=== PATIENT | female | born 1990 | race Caucasian/White ===

== ENCOUNTER 2025-06-08 15:46 | Emergency (ER) | payer OTHER ==
[~2025-06-08] VITALS: Ht 152.4 cm; Wt 106.8 kg
[2025-06-08 15:48] VITALS: BP 146/82; PULSE 107; TEMP 98.2; O2SAT 96
--- NOTE | 2025-06-08 15:55 | ELECTROCARDIOGRAPH REPORT ---
[facility] Test Date: 2025-06-08 Test Time: 15:54:02 Pat Name: DONNY POWERS Department: EMERGENCY ROOM Room: Gender: F Relationship Management Lead: : 1990 Requested By: KEVIN LEYVA Order Number: [id number] Reading MD: Measurements Intervals [place] Rate: 105 P: 50 WA: 123 QRS: -12 QRSD: 76 T: 53 QT: 328 QTc: 434 Interpretive Statements Sinus tachycardia Please click the below link to view image of tracing.
--- NOTE | 2025-06-08 16:21 | RADIOLOGY REPORT ---
EXAM: DI CHEST,SINGLE VIEW HISTORY: CP TECHNIQUE: 1 view of the chest COMPARISON: None FINDINGS/IMPRESSION: LUNGS: No pleural effusion, consolidation, or pneumothorax MEDIASTINUM: Unremarkable BONES: No acute osseous abnormality OTHER: None
[2025-06-08 16:23] LABS: MEAN PLATELET VOLUME 9.3 FL (7.4-10.4); RED CELL DISTRIBUTION WIDTH 13.2 % (11.5-14.5)
[2025-06-08 16:38] LABS: CREATININE 0.86 MG/DL (0.40-0.90); PRO BRAIN NATRIURETIC PEPTIDE < 30 PG/ML (0-125); TOTAL CARBON DIOXIDE 28.4 MMOL/L (24-32); eCRCL 65 ML/MIN; eGFR 75 ML/MIN
[2025-06-08 16:41] VITALS: RESP 16
[2025-06-08] MEDS ORDERED: IBUP-1986 PO (17:18)
--- NOTE | 2025-06-08 17:22 | Physician Documentation ---
History of Present Illness General Chief Complaint: Shoulder pain Stated Complaint: FALL Time Seen by MD: 17:00 Primary Medical Doctor: NONE Mode of Arrival: POV, Ambulatory History of Present Illness Initial Comments The patient is a 35-year-old female who fell on her outstretched arms about four days ago and has ongoing left shoulder pain. Medication Reconciliation Allergies: Coded Allergies: No Known Allergies (Unverified , 06/08/25) Review of Systems ROS Review of systems is negative except as noted in the HPI. Physical Exam Physical Exam Vital Signs: Temperature: 98.2, Heart Rate: 107, Respiratory Rate: 16, BP: 146/82, Pulse Oximetry: 96, Weight: 106.820 Physical Exam Physical Exam Vitals and nursing note reviewed. Constitutional: General: Patient is awake, alert, oriented x 4 in no acute distress and well appearing. Speech is clear and lucid. Appearance: Normal appearance. Patient is not ill-appearing, toxic-appearing or diaphoretic. HENT: Head: Normocephalic and atraumatic. Mouth/Throat: Mouth: Mucous membranes are moist. Pharynx: Oropharynx is clear. Eyes: General: No scleral icterus. Extraocular Movements: Extraocular movements intact. Pupils: Pupils are equal, round, and reactive to light. Neck: Supple, no Kernig or Brudzinski sign. Cardiovascular: Rate and Rhythm: Normal rate and regular rhythm. Heart sounds: No murmur heard. Pulmonary: Effort: No respiratory distress. Breath sounds: No wheezing, rhonchi or rales. Abdominal: General: There is no distension. Palpations: There is no fluid wave, hepatomegaly or mass. Tenderness: There is no abdominal tenderness. There is no guarding. Musculoskeletal: General: Tenderness along the lateral border of the left scapula. Neurovascular status is intact in the left upper extremity. The patient complains of some pain in the lateral metatarsals of the left foot but there is no tenderness or swelling there. (No x-rays indicated at this time). Skin: Coloration: Skin is not jaundiced. Findings: No erythema or rash. Neurological: Mental Status: Patient is alert. Progress Results/Orders Results/Orders Orders - KEVIN LEYVA MD Chest,Single View (06/08/25 15:51) Monitor (06/08/25 15:51) Saline Lock (06/08/25 15:51) Oxygen (06/08/25 15:51) Hs Troponin I W Calculations (06/08/25 17:51) Hs Troponin I W Calculations (06/08/25 18:51) Completed Orders - KEVIN LEYVA MD Chest,Single View (06/08/25 15:51) Cbc/Diff (06/08/25 15:51) BMP (06/08/25 15:51) PBNP (06/08/25 15:51) Electrocardiogram (06/08/25 15:51) Hs Troponin I W Calculations (06/08/25 15:51) Vital Signs 06/08/25 06/08/25 15:48 16:41 Temp 98.2 Pulse 107 Resp 18 16 B/P (MAP) 146/82 Pulse Ox 96 Laboratory Tests Test 06/08/25 15:57 White Blood Count 7.9 Red Blood Count 4.66 Hemoglobin 13.3 Hematocrit 40.2 Mean Corpuscular Volume 86.2 Mean Corpuscular Hemoglobin 28.6 Mean Corpuscular Hemoglobin Concent 33.2 Red Cell Distribution Width 13.2 Platelet Count 272 Mean Platelet Volume 9.3 Neutrophils (%) (Auto) 65.7 Lymphocytes (%) (Auto) 21.0 Monocytes (%) (Auto) 10.3 Eosinophils (%) (Auto) 2.7 Basophils (%) (Auto) 0.3 Neutrophils # (Auto) 5.2 Lymphocytes # (Auto) 1.7 Monocytes # (Auto) 0.8 Eosinophils # (Auto) 0.2 Basophils # (Auto) 0.0 CBC Comment Sodium Level 142 Potassium Level 4.0 Chloride Level 107 Carbon Dioxide Level 28.4 Anion Gap 7 L Blood Urea Nitrogen 14 Creatinine 0.86 Estimated GFR/1.73 m2 75 BUN/Creatinine Ratio 16.3 Glucose Level 98 Calcium Level 9.2 Troponin I High Sensitivity < 4 L Troponin I High Sens Percent Delta Troponin I Hi Sens Absolute Change Pro-B-Type Natriuretic Peptide < 30 Albumin 3.4 Chemistry Comments Medical Decision Making Findings This patient presents with pain along the lateral aspect of the left scapula after falling on outstretched arms four days ago. I believe that her injuries there more than in the shoulder in which she has full range of motion. I am going to prescribe a sling and ibuprofen. Departure Disposition: 01 HOME / SELF CARE / HOMELESS Impression: Primary Impression: Strain of shoulder Additional Instructions: You have been evaluated for left shoulder and back pain after a fall. While there are no fracture seen on x-ray you did sprain the area and it will take some time to heal and feel better. I have sent a prescription for ibuprofen tear pharmacy. Please wear the sling for comfort. Applying ice to the painful areas will help, as well. Follow-up with your PCP) or establish care), as needed. Referrals: NO PRIMARY CARE PROVIDER (PCP) Prescriptions Ibuprofen (Ibuprofen) 800 Mg Tablet 1 TAB PO Q8H PRN for pain for 10 Days, #30 TAB Prov: KEVIN LEYVA MD 06/08/25 Signature Scribe Signature: . Attestation: . KEVIN LEYVA MD Jun 08, 2025 17:22
[2025-06-08] MEDS: ibuprofen tablet 400 MG TABLET PO ONE (17:50)
== END 2025-06-08 17:56 | disposition home or self-care (01) ==
LOC: ER 15:47
DX: S46.812A Strain of other muscles, fascia and tendons at shoulder and upper arm level, left arm, initial encounter (principal); I49.9 Cardiac arrhythmia, unspecified; W18.30XA Fall on same level, unspecified, initial encounter; Y93.89 Activity, other specified; Y92.89 Other specified places as the place of occurrence of the external cause; Y99.8 Other external cause status
CPT/HCPCS: 36415; 71045; 80048; 83880; 84484; 85025; 93005; 99285